=== PATIENT | female | born 1930 | race Caucasian/White ===

== ENCOUNTER 2016-09-12 | Outpatient (CLI) | payer MEDICARE, OTHER, MEDICAID | END 2016-09-12 13:01 | disposition home or self-care (01) ==

== ENCOUNTER 2016-10-10 | Outpatient (CLI) | payer MEDICARE, OTHER, MEDICAID ==
--- NOTE | 2016-10-11 10:32 | CONSULTATION NOTE ---
DATE OF CONSULTATION: 10/10/2016 00:00:00 TIME OF VISIT: [id number]. REQUESTING PROVIDER: Geovanna Kellogg PA-C. TOPIC: Follow up palliative care consult. Thank you, Geovanna Kellogg PA-C, for asking the palliative care consult service to be involved in the care of your patient. I am seeing the patient regarding her depression, pain and symptom management in her apartment at [facility]. It is a taxing and considerable effort for her to leave the home, as well as to frame interventions in the context of her current setting. BRIEF HISTORY OF PRESENT ILLNESS UPDATE: This is an 85-year-old woman who has a history of a sustaine d pelvic fracture including displacement her left superior pubic ramus and minimally displaced sacral fracture last fall. This has since healed. She is doing very well with physical therapy and occupati onal therapy. She had had a left ankle injury again early August, but did not result in a fracture. Most recently she was diagnosed with the flu with the sequela of pneumonia. Her respiratory symptoms have resolved. Her energy is returning and she is doing quite well. Was originally seen for her depr ession. I did get a call last week from her daughter. She was reporting that she was having increased difficulty with insomnia with resulting irritability and increased anxiety. At that point in time, I did increase her mirtazapine up to 30 mg at bedtime. Today, she reports she is sleeping well. Her mo od is good. She denies anxiety and is overall feeling like her quality of life has improved. SYMPTOM BURDEN: Her pain now is minimal. Most of her residual pain is in her right shoulder. This is longstanding and radiates down into her arm and hand area. She is working with physical and occupatio nal therapy with continued improvement with this. She has titrated down on her oxycodone just 2 tabs at bedtime now. Her anxiety is well controlled on her lorazepam 0.5 mg half tab t.i.d. In weighing th e benefits and burdens of continuing on with this, I did speak with her daughter who feels her mood h as evened out. In agreement with her past history of anxiety disorder, the agreement was to leave as is. Unfortunately, the patient had obtained some alcohol and was removed from the room last night, an d actually she is the one who brought it up for conversation, I believe testing the water to see if I was going to stay true to my restrictions. She, of course, has very little insight into this, but is in agreement to continue to follow the rules, which are for her to return to the facility with no fu rther alcohol, particularly alcohol in her room. I am not quite sure who provided her this, but I pan l follow up with the daughter to remind them that we cannot continue with her current medication thom men if they are going to supplement her with alcohol. She is going down daily for bingo, which is an activity she enjoys. She is enjoying her interaction with the rehab staff and she has been out [employer] yesterday with her daughter. She reports her activity tolerance remains fairly compromised, but fe els like she is getting stronger day by day. She denies shortness of breath. Her longstanding COPD is managed with a nebulizer 3-4 times a day. Her cold symptoms have resolved. She also denies nausea. S he reports her bowels are moving without difficulty and overall feels like things have improved. No c hanges to her medication list other than to add the mirtazapine, increase it to 30 mg at bedtime. CODE STATUS: POLST IS DO NOT ATTEMPT RESUSCITATION, COMFORT MEASURES ONLY, NO ANTIBIOTICS, AND USE OF COMFORT MEASURES TO RELIEVE SYMPTOMS, AND NO ARTIFICIAL NUTRITION. OF NOTE, THEY STILL CONTINUE TO T REAT WITH ANTIBIOTICS AND ARE INTERESTED IN TREATING REVERSIBLE CONDITIONS. HER DURABLE POWER OF ATTO RICARDO IS TONY NAYANA, . SOCIAL HISTORY: The patient has 2 sons and a daughter. Angie, her daughter, oversees most of her care and does take her out for regular activities. She is still looking forward to her visit from her "janusz y friend" who is 94 years old. She speaks to him daily from [place]. She is going down at noon for meal s, ambulating with her walker. She has not been down for breakfast because she likes to sleep in and she has her own favorite foods in her room for preparation for evening snacks. REVIEW OF SYSTEMS ENT: The patient has some hearing loss. CARDIOVASCULAR: No chest pain. RESPIRATORY: Reports her cough is resolved. She feels like she is back to her baseline. GASTROINTESTINAL: Bowels are moving well. Her weight has returned to her baseline, which is 110. GENITOURINARY: She does have frequency, no signs or symptoms of bladder infection. MUSCULOSKELETAL: She does shower independently, continues to have some difficulty with activity max ance. She is currently now resumed with OT and PT. INTEGUMENTARY: Denies rashes, skin issues. NEUROLOGIC: She does report short-term memory issues. Of note, she does not remember her sequela over the last several months and falls. She denies hallucinations or delusions. PSYCHIATRIC: She denies depression. She is somewhat resigned to her current living situation, though would prefer to have something else, though she does not define what that something else is. ENDOCRINE: The patient is on thyroid medication. HEMATOLOGIC/IMMUNOLOGIC: Most recently was treated for pneumonia. PHYSICAL EXAMINATION GENERAL: The patient is bright, she makes good eye contact. She did not demonstrate any pain behavior s. She is getting back up and down with a lift chair. She reports this really has helped as far as de creasing her discomfort in her hips and legs and feels like this is mostly resolved. EYES: Normal on inspection, slight periorbital edema. ENT: Mucous membranes are moist. NECK: Trachea midline. No lymphadenopathy. RESPIRATORY: Her breath sounds are diminished, but clear. CARDIOVASCULAR: Her temperature is 98.6, O2 saturation 97%, pulse 64, blood pressure 122/58. ABDOMEN: Flat. EXTREMITIES: No lower extremity edema. She is using her walker. She does have a little bit of a left foot drag, but does appear to be able to maneuver well. PALLIATIVE CARE DISCUSSION: Who is present, myself and the patient. The patient does report she did h ave a period where she was not sleeping well. She does feel whatever adjustments I made, as best she knows has improved. Her appetite is good. Her mood is improved. She is able to identify activities th at she seems to enjoy. She has no worries. In discussing just how far she has come, she really has no recall of when she was feeling so poorly and when we had met, I did give her positive reinforcement that she is much more clear. She is stronger. She is feeling much better. She is less anxious and I r eally encouraged her to continue with her therapy, getting out of her room and finding ways to distra ct herself. IMPRESSION: This is an 85-year-old woman with multiple morbidities, as her pneumonia since resolved. She presents with no pain behaviors today. Reports her depression and anxiety, as well as demonstrate d by her behaviors, do appear to be controlled. RECOMMENDATIONS/COUNSELING DONE 1. 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 Most of her discomfort is still in the evenings as far as just at bedtime. I will leave her 2 oxycodone 5 mg at night. It appears what she is describing is a little bit of restless leg syndrome, which she feels the pain pills are working well and she has to lerated her titration without any difficulty. She does have both ibuprofen and acetaminophen, as well as her oxycodone for breakthrough pain if needed. 2. Anxiety, in remission. Again, this is multifactorial in origin. She is doing well on her scheduled benzodiazepine of lorazepam 0.5 mg half tab t.i.d. Again, weighing the benefits and burdens, given h er age, I think her anxiety disorder is well managed on this. We will leave her on this given her str uggles with her past history with alcohol misuse, is not appearing to cause any sedation or issues an d has stabilized her mood. 3. Weight loss. She is currently eating well, recently we have increased her mirtazapine to 30 mg. Th is has addressed her insomnia. 4. Generalized weakness. The patient continues to improve. She is now back into physical and occupati onal therapy. This also decreases her isolation. She really enjoys the staff that she is working with and seems motivated to improve. 5. Dyspnea. She has longstanding COPD. With her recent exacerbation of pneumonia, this has since reso lved. Her cough is resolved. She continues of course to have a fragile respiratory status, but does a ppear she is back to her baseline. TIME SPENT: Thirty minutes with greater than 50% of this done in counseling and coordination of care, followup with staff. The question was whether she could manage her ibuprofen in her room. The patien t does have short-term memory issues, and given her propensity for overdoing, I did not leave permiss ion for her to do that at this point in time. Will consider putting her on hold unless other issues a rise. I will check in with her daughter in 4-6 weeks and follow up accordingly. Thank you again for this referral. She is doing fairly well at this current time. Certainly, she is f ragile status and at high risk for recurrence of issues, particularly sequela of a fall or recurrent pneumonia. JOB #: [id number] EXT JOB #:[id number]
== END 2016-10-10 13:01 | disposition home or self-care (01) ==

== ENCOUNTER 2016-12-18 14:45 | Outpatient (CLI) | payer MEDICARE, OTHER, MEDICAID | END 2016-12-18 14:46 | disposition home or self-care (01) | DX: Z51.5 Encounter for palliative care (principal); G25.81 Restless legs syndrome; G47.00 Insomnia, unspecified; G89.21 Chronic pain due to trauma; F41.9 Anxiety disorder, unspecified; R63.4 Abnormal weight loss; R53.1 Weakness; J44.9 Chronic obstructive pulmonary disease, unspecified; F32.9 Major depressive disorder, single episode, unspecified; Z66 Do not resuscitate; Z79.891 Long term (current) use of opiate analgesic; Z91.81 History of falling; Z87.01 Personal history of pneumonia (recurrent); Z87.81 Personal history of (healed) traumatic fracture ==

== ENCOUNTER 2016-12-24 14:43 | Outpatient (CLI) | payer MEDICARE, OTHER | END 2016-12-24 14:44 | DX: Z79.899 Other long term (current) drug therapy (principal) ==

== ENCOUNTER 2017-09-25 13:26 | Outpatient (CLI) | payer MEDICARE, OTHER ==
[2017-09-25] MEDS ORDERED: ALBUTEROL NEB 2.5 MG/3 ML INH ONE (15:00)
== END 2017-09-25 13:27 | disposition home or self-care (01) ==
LOC: RT 13:26
PROVIDERS: ATTEND Physician Assistant Medical
DX: J45.909 Unspecified asthma, uncomplicated (principal)
CPT/HCPCS: 94060; 94729; J7613

== ENCOUNTER 2019-07-13 15:30 | Outpatient (CLI) | payer MEDICARE, OTHER | END 2019-07-13 15:31 | disposition critical access hospital (66) | LOC: EMS 15:30 | PROVIDERS: ATTEND Surgery | DX: M79.651 Pain in right thigh (principal); W01.0XXA Fall on same level from slipping, tripping and stumbling without subsequent striking against object, initial encounter; Y92.099 Unspecified place in other non-institutional residence as the place of occurrence of the external cause | CPT/HCPCS: A0425; A0429 ==

== ENCOUNTER 2019-07-13 15:45 | Emergency (ER) | payer MEDICARE, OTHER ==
--- NOTE | 2019-07-13 16:15 | ED Physician Documentation ---
PD HPI LOWER EXT INJURY - Stated complaint Stated Complaint: GLF - Chief complaint Chief Complaint: General - History obtained from History obtained from: Patient - History of Present Illness PD HPI LOW EXT INJURY LOCATION: Right, Hip Type of injury: Fall (she says she was getting up to reach for her walker, which was just a few steps away, and lost balance and fell to side, with pain at right hip. Was told to stay on ground and EMS called, so patient did not attempt weight bearing. She is able to move hip around. Denies injury to chest/head/neck/arms.) Where injury occurred: Home (lives in assisted living) Timing - onset: How many hours ago (1), Today Timing - details: Abrupt onset, Still present Worsened by: Moving, Palpating (to lateral aspect of the right hip.) Associated symptoms: No: Weakness, Numbness Contributing factors: No: Anticoagulated, Prosthetic joint Similar symptoms before: Has not had sx before Review of Systems Cardiac: denies: Chest pain / pressure GI: denies: Abdominal Pain Musculoskeletal: denies: Neck pain, Back pain Neurologic: denies: Altered mental status, Head injury PD PAST MEDICAL HISTORY - Past Medical History Cardiovascular: Hypertension Respiratory: COPD Endocrine/Autoimmune: None GI: 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 : None HEENT: Chronic vision loss Psych: Anxiety Musculoskeletal: Osteoporosis, Osteopenia Derm: None - Past Surgical History Past Surgical History: Yes Ortho: Rotator cuff repair /BOILERMAKER HELPER: Hysterectomy, Mastectomy - Present Medications Home Medications: Ambulatory Orders Medication Instructions Recorded Confirmed Aspirin [Aspir 81] 81 mg PO DAILY 03/02/15 06/08/16 Escitalopram [Lexapro] 20 mg PO DAILY 03/02/15 06/08/16 LORazepam [Ativan] 0.25 tab BID PRN 03/02/15 06/08/16 Amitriptyline [Elavil] 75 mg PO QPM 11/16/15 06/08/16 Docusate Sodium 100 mg PO BID 11/16/15 06/08/16 Levothyroxine [Synthroid] 100 mcg PO QDAC 11/16/15 06/08/16 Montelukast [Singulair] 10 mg PO QPM 11/16/15 06/08/16 Multivitamin W/Minerals [Theragran 1 tab PO DAILY 11/16/15 06/08/16 M] Senna [Senokot] 8.6 mg PO DAILY 11/16/15 06/08/16 dilTIAZem HCl [Diltiazem 24Hr ER] 240 mg PO DAILY 11/16/15 06/08/16 Ascorbic Acid [Vitamin C] 250 mg BID 11/29/15 06/08/16 Ferrous Sulfate 325 mg PO DAILY 11/29/15 06/08/16 Albuterol Sulfate [Proair Hfa 1 - 2 puffs INH Q4H PRN 06/08/16 06/08/16 Inhaler] Cephalexin [Keflex] 500 mg PO BID 06/08/16 06/08/16 Fluticasone Propionate [Flovent 250 mcg IH BID 06/08/16 06/08/16 Diskus] Polyethylene Glycol 3350 [Miralax] 1 applic PO DAILY 06/08/16 06/08/16 Acetaminophen [Tylenol] 650 mg PO QID PRN #60 tablet 07/13/19 - Allergies Allergies/Adverse Reactions: Allergies Allergy/AdvReac Type Severity Reaction Status Date / Time No Known Drug Allergies Allergy Verified 06/08/16 09:10 - Social History Does the pt smoke?: No Smoking Status: Never smoker Does the pt drink ETOH?: Yes Does the pt have substance abuse?: No - Immunizations Immunizations are current?: Yes - POLST Patient has POLST: No PD ED PE NORMAL - Vitals Vital signs reviewed: Yes - General General: Alert and oriented X 3, No acute distress, Well developed/nourished - HEENT HEENT: Atraumatic - Neck Neck: Supple, no meningeal sign, No bony TTP, No adenopathy - Cardiac Cardiac: RRR, No murmur - Respiratory Respiratory: Clear bilaterally, Other (no chestwall tenderness) - Abdomen Abdomen: Soft, Non tender - Back Back: No spinal TTP - Derm Derm: Normal color, Warm and dry - Extremities Extremities: Other (right lateral hip with some soft tissue tenderness. No pain in hip with rotational nor impaction pressure. She has good ROM of the hip herself.) - Neuro Neuro: Alert and oriented X 3, No motor deficit, No sensory deficit, Normal speech Results - Vitals Vitals: Vital Signs - 24 hr 07/13/19 07/13/19 15:47 17:45 Temperature 36.7 C Heart Rate 75 81 Respiratory 18 18 Rate Blood Pressure 123/93 H 166/108 H O2 Saturation 94 93 Oxygen O2 Source Room air - Rads (name of study) right hip xray Radiology: Prelim report reviewed (osteopenic; questionable line subcapital neck), EMP read contemporaneously (normal appearance), See rad report PD MEDICAL DECISION MAKING - ED course Complexity details: reviewed results (questionable line per Radia. She has good ROM of the hip and is able to stand without pain. Clinically seems contusion laterally. ), considered differential (She has tenderness over the lateral aspect of the hip. She does have good range of motion of the hip of her own and there is no impaction nor rotational pain.), d/w patient Departure - Departure Disposition: 01 Home, Self Care Clinical Impression: Contusion, hip Qualifiers: Encounter type: initial encounter Laterality: right Qualified Code(s): S70.01XA - Contusion of right hip, initial encounter Fall from slip, trip, or stumble Qualifiers: Encounter type: initial encounter Qualified Code(s): W01.0XXA - Fall on same level from slipping, tripping and stumbling without subsequent striking against object, initial encounter Condition: Stable Record reviewed to determine appropriate education?: Yes Instructions: ED Contusion Hip Prescriptions: Acetaminophen [Tylenol] 650 mg PO QID PRN #60 tablet PRN Reason: PRN PAIN &/OR FEVER Comments: Tylenol 650 mg 4 times daily as needed for pain. I do not see any fractures on your x-ray. He will likely be sore on the side of the hip for a few days. Activity as tolerated. Discharge Date/Time: 07/13/19 17:50
[2019-07-13] MEDS ORDERED: ACETAMINOPHEN 325 MG TABLET PO STA ×2 (16:21→17:35)
--- NOTE | 2019-07-13 17:35 | XRAY Report ---
Reason: tripped and fell to right lateral hip Procedure Date: 07/13/2019 Accession Number: [id number] / [id number] Procedure: XR - Hip w/Pelvis 2-3V RT CPT Code: Final Report FULL RESULT: EXAM: RIGHT HIP RADIOGRAPHY EXAM DATE: 07/13/2019 04:53 PM. CLINICAL HISTORY: Trauma. Tripped and fell to right lateral hip. COMPARISON: HIP W/PELVIS 2-3V LT 06/08/2016 9:31 AM. TECHNIQUE: 2 views. FINDINGS: Bones: The bones are osteopenic. Question acute subcapital right femoral neck fracture. Status post ORIF of a left femoral neck fracture. No suspicious osseous lesion. Joints: Moderate bilateral hip osteoarthritis. No right hip dislocation. Degenerative changes of the sacroiliac joints and lumbar spine. Other: None. IMPRESSION: 1. Question acute subcapital right femoral neck fracture. Recommend CT for further evaluation. 2. Status post ORIF of a left femoral neck fracture. RADIA
[2019-07-13 17:46] VITALS: BP 166/108
== END 2019-07-13 17:50 | disposition home or self-care (01) ==
LOC: EDUNIT# → ED 15:45
DX: S70.01XA Contusion of right hip, initial encounter (principal); W01.0XXA Fall on same level from slipping, tripping and stumbling without subsequent striking against object, initial encounter; Y93.89 Activity, other specified; Y92.099 Unspecified place in other non-institutional residence as the place of occurrence of the external cause; M85.88 Other specified disorders of bone density and structure, other site; M16.0 Bilateral primary osteoarthritis of hip; I10 Essential (primary) hypertension; Z79.82 Long term (current) use of aspirin
CPT/HCPCS: 73502; 99283; 99284; A9270

== ENCOUNTER 2019-07-21 13:14 | Outpatient (CLI) | payer MEDICARE, OTHER ==
--- NOTE | 2019-07-21 14:11 | CT Report ---
Reason: HIP PAIN RT Procedure Date: 07/21/2019 Accession Number: [id number] / [id number] Procedure: CT - PELVIS WO CPT Code: Final Report FULL RESULT: EXAM: CT BONY PELVIS WITHOUT CONTRAST EXAM DATE: 07/21/2019 01:41 PM. CLINICAL HISTORY: Right hip pain. COMPARISON: HIP W/PELVIS 2-3V RT 07/13/2019 4:34 PM HIP W/PELVIS 2-3V LT 06/08/2016 9:31 AM. TECHNIQUE: Thin-section axial images were acquired of the pelvis without contrast. Post-processing: Coronal and sagittal reformats. Other: None. In accordance with CT protocol optimization, one or more of the following dose reduction techniques were utilized for this exam: automated exposure control, adjustment of mA and/or KV based on patient size, or use of iterative reconstructive technique. FINDINGS: There is an acute or subacute appearing, mildly impacted, mildly angulated fracture of the right femoral neck. No bone lesions. Previous ORIF of left femoral neck fracture which has healed. Healed left inferior pubic ramus fracture. Visualized lower lumbar spine: Degenerative changes. Sacroiliac Joints: Arthritic changes. Symphysis Pubis: Arthritic changes. Right Hip: Mild to moderate osteoarthritis. No dislocation or large joint effusion. Left Hip: Mild to moderate left hip osteoarthritis. Focal sclerosis and cortical irregularity at the anterior superior aspect of the left femoral head. Musculature: Normal. No fatty atrophy. Pelvic Cavity: Previous hysterectomy. No free fluid. Calcifications at the pelvic cul-de-sac. Other: No lymphadenopathy. No free air or free fluid. The other visualized soft tissues are unremarkable. IMPRESSION: 1. Acute or subacute appearing, mildly impacted, mildly angulated fracture of the right femoral neck. 2. Previous ORIF of left femoral neck fracture which is healed. There is focal sclerosis and cortical irregularity at the anterosuperior aspect of the left femoral head which may represent osteonecrosis. 3. Healed left inferior pubic ramus fracture. 4. Degenerative changes at the visualized lower lumbar spine, sacroiliac joints, pubic symphysis, hip joints. 5. Previous hysterectomy. RADIA
== END 2019-07-21 13:15 | disposition home or self-care (01) ==
LOC: DI 13:14
PROVIDERS: ATTEND Physician Assistant Medical
DX: S72.001A Fracture of unspecified part of neck of right femur, initial encounter for closed fracture (principal); M47.816 Spondylosis without myelopathy or radiculopathy, lumbar region
CPT/HCPCS: 72192

== ENCOUNTER 2019-07-21 19:20 | Outpatient (CLI) | payer MEDICARE, OTHER | END 2019-07-21 19:21 | disposition short-term general hospital (02) | LOC: EMS 19:20 | PROVIDERS: ATTEND Surgery | DX: S72.001A Fracture of unspecified part of neck of right femur, initial encounter for closed fracture (principal); W19.XXXA Unspecified fall, initial encounter | CPT/HCPCS: A0425; A0429 ==